=== PATIENT | male | born 2000 | race Caucasian/White ===

== ENCOUNTER 2020-09-11 02:58 | Emergency (ER) | payer MEDICAID, OTHER ==
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
== END 2020-09-11 03:46 | disposition home or self-care (01) ==
LOC: FB.ED 02:58
DX: S80.211A Abrasion, right knee, initial encounter (principal); T14.8XXA Other injury of unspecified body region, initial encounter; F17.210 Nicotine dependence, cigarettes, uncomplicated; E66.9 Obesity, unspecified; Z68.32 Body mass index [BMI] 32.0-32.9, adult; V49.9XXA Car occupant (driver) (passenger) injured in unspecified traffic accident, initial encounter
CPT/HCPCS: 99282; 99283